=== PATIENT | male | born 2000 | race Two or more races ===

== ENCOUNTER 2024-11-16 03:37 | Emergency (ER) | payer MEDICAID, SELFPAY ==
[2024-11-16 03:38] VITALS: BMI 25.1
[2024-11-16 04:13] VITALS: BP 154/98; PULSE 100; RESP 19; TEMP 36.4; O2SAT 97
--- NOTE | 2024-11-16 04:25 | EDNOTE_ITS ---
<Statement entered by Yani Dutton MD - 11/24/24 16:32> As co-signing physician, I was present and available for consult prn. I concur with the plan and care as documented by the midlevel provider. ED Alcohol RME/HPI General Chief Complaint: General Adult/Misc Complain Stated Complaint: FEELS NUMB ALL OVER BODY Time Seen by Provider: 11/16/24 04:24 Source: patient Arrival date/time: 11/16/24 03:37 24-year-old male presents emergency department reporting feels numbness and tingling sensation throughout entire body after drinking and smoking methamphetamine today. Patient denies any fever, chills, cough, sob, chest pain, n/v, or any other associated symptom. Mode of arrival: ambulatory Limitations: no limitations Related Data Allergies Allergy/AdvReac Type Severity Reaction Status Date / Time No Known Allergies Allergy Verified 10/24/23 12:50 Review of Systems Review of Systems Systems Reviewed: All systems reviewed, normal except as documented Constitutional Constitutional: Reports system reviewed and no additional complaints, except as documented, Denies body ache(s), Denies chills and Denies fever(s) Eyes Eyes: Reports system reviewed and no additional complaints, except as documented and Denies change in vision ENT Ears, Nose, Mouth, and Throat: Reports system reviewed and no additional comp laints, except as documented, Denies disequilibrium, Denies dizziness, Denies sore throat and Denies vertigo Cardiovascular Cardiovascular: Reports system reviewed and no additional complaints, except as documented, Denies chest pain and Denies dyspnea Respiratory Respiratory: Reports system reviewed and no additional complaints, except as documented, Denies chest congestion, Denies cough and Denies dyspnea Gastrointestinal Gastrointestinal: Reports system reviewed and no additional complaints, except as documented, Denies abdominal pain, Denies nausea and Denies vomiting Musculoskeletal Musculoskeletal: Reports system reviewed and no additional complaints, except as documented, Denies abnormal gait, Denies arthralgias, Reports numbness and Reports tingling Integumentary/Breasts Skin/Breast: Reports system reviewed and no additional complaints, except as documented, Denies erythema, Denies rash and Denies wounds Neurologic Neurologic: Reports system reviewed and no additional complaints, except as documented, Denies abnormal gait, Denies disequilibrium, Denies dizziness, Reports numbness, Reports tingling and Denies vertigo Past Medical History Social History SMOKING STATUS: Never smoker ED Exam General Limitations: Present no limitations General appearance: Present alert and in no apparent distress Head Head exam: Present atraumatic Eye Eye exam: Present normal appearance, PERRL and EOMI ENT ENT exam: Present normal exam, normal oropharynx and mucous membranes moist Neck Neck exam: Present normal inspection, full ROM and trachea midline Chest Chest inspection: Present normal inspection and symmetric chest wall rise Respiratory Respiratory exam: Present normal lung sounds bilaterally Cardiovascular Cardiovascular exam: Present regular rate, normal rhythm and normal heart sounds Abdominal Exam Abdominal exam: Present soft and normal bowel sounds Extremities Exam Extremities exam: Present normal inspection and full ROM Back Exam Back exam: Present normal inspection and full ROM Neurological Exam Neurological exam: Present alert, oriented X3 and CN II-XII intact Psychiatric Psychiatric exam: Present normal affect and normal mood Skin Skin exam: Present warm, dry, intact and normal color Course Quality Measures none Orders Category Date Time Status EKG (ED ONLY) *Do not use* NOW Care 11/16/24 04:24 Completed EKG (ED Only) Stat Exams 11/16/24 04:24 Ordered Vital Signs Vital signs: Vital Signs Temperature 97.5 F 11/16/24 04:13 Pulse Rate 100 11/16/24 04:13 Respiratory Rate 19 11/16/24 04:13 Blood Pressure 154/98 H 11/16/24 04:13 Pulse Oximetry (%) 97 11/16/24 04:13 Oxygen Delivery Method Room Air 11/16/24 04:13 97% RA WNL. Procedures -ED EKG Interpretation #1: Date of EK11/16/24 Time of EK:52 Rate: 101 Interpretation: Interpreted by me EKG Impression: No acute ST-T changes, No ectopy, No ischemic changes, Sinus tachycardia and Normal QRS Discharge Plan Plan Patient Disposition: HOME (Self Care) Disposition Comment: Stable Problem List Clinical Impression: Methamphetamine use Patient/Caregiver Discharge Instructions Discharge Activity: activity as tolerated Education Materials: Addiction Ask These Questions, Understanding Methamphetamine ..., ED Drug Abuse Additional Instructions: Stop smoking methamphetamine. Drink plenty of fluids and stay hydrated. Close follow-up with primary care provider in 2 to 3 days. Return to emergency department for any worsening symptoms or as needed. Print Language: [place] Stand Alone Forms: Lanette Award Info., Patient Portal Info Letter PA/GLUING MACHINE FE[employer]ER Supervising Physician KINGA/ARCENIO Supervising Physician: Dr. Dutton Alcohol MDM Narrative MDM Narrative: 24-year-old male presents emergency department reporting feels numbness and tingling sensation throughout entire body after drinking and smoking methamphetamine today. Patient denies any fever, chills, cough, sob, chest pain, n/v, or any other associated symptom. EKG ST. Patient appears non toxic and hemodynamically stable. Patient GCS 15 with steady gait and full active ROM to bilateral upper and lower extremities. Patient data External records reviewed:: [facility] previous records Clinical information provided by:: patient Social determinants that could affect healthcare access:: substance use Patient has the following chronic illnesses:: see chart How is presenting disease/condition affected by chronic disease/condition?: exacerbated by Evaluation data The following diagnostics were reviewed and interpreted by me:: EKG tracing(s) Lab and/or radiology exams considered but not ordered:: ordered Interpretation Summary: interpreted by me Medications / Prescriptions Medications or Prescriptions considered but not ordered:: n/a Medication administrations:: n/a Consultations Consultation(s) initiated? (list below): No Diagnosis Differential diagnosis alcohol: alcohol intoxication Most likely diagnosis given after review of the tests above:: methamphetamine use Admission Indicated Admission indicated?: not indicated Admission Request Was there a request for admission?: No Disposition Plan Disposition Plan: Discharge Discharge Attestation Discharge Attestation: The patient and all family members were given an opportunity to ask questions and understood the discharge instructions. Discharge instructions specifically effects, indications for sooner follow up or return to the emergency department, and the expected course of current diagnosis. Patient condition: Stable
== END 2024-11-16 05:23 | disposition home or self-care (01) ==
LOC: SERX 04:56
PROVIDERS: Emergency Provider Emergency Medicine
DX: F15.90 Other stimulant use, unspecified, uncomplicated (principal); R00.0 Tachycardia, unspecified
CPT/HCPCS: 93005; 99283